=== PATIENT | female | born 1945 | race Asian ===

== ENCOUNTER 2018-12-15 07:47 | Outpatient (CLI) | payer OTHER ==
[2018-12-15 10:22] LABS: ALBUMIN 3.9 g/dL (3.2-5.5); ALBUMIN/GLOBULIN RATIO 1.1 (1.0-2.2); ALKALINE PHOSPHATASE 49 IU/L (42-121); ALT ALANINE AMINOTRANSFERASE 17 IU/L (10-60); AST ASPARTATE AMINOTRANSFERASE 23 IU/L (10-42); BILIRUBIN,TOTAL 0.7 mg/dL (0.2-1.0); BUN - BLOOD UREA NITROGEN 19 mg/dL (6-20); CALCIUM 8.6 mg/dL (8.5-10.3); CARBON DIOXIDE - CO2 30 mmol/L (21-32); CHLORIDE 103 mmol/L (101-111); CHOL/HDL RATIO 2.5 (<4.4); CHOLESTEROL 165 mg/dL; CREATININE 0.7 mg/dL (0.4-1.0); GFR - MDRD 82 (>89); GLUCOSE 94 mg/dL (70-100); HDL CHOLESTEROL 66 mg/dL; LDL CHOLESTEROL,CALCULATED 85 mg/dL; LDL/HDL RATIO 1.3 (<4.4); SODIUM 140 mmol/L (135-145); TOTAL PROTEIN 7.4 g/dL (6.7-8.2); VLDL CHOLESTEROL 14 mg/dL
== END 2018-12-15 07:48 | disposition home or self-care (01) ==
LOC: LAB.S 07:47
PROVIDERS: ATTEND Internal Medicine
DX: E78.5 Hyperlipidemia, unspecified (principal); E03.9 Hypothyroidism, unspecified
CPT/HCPCS: 36415; 80053; 80061; 83721; 84443

== ENCOUNTER 2022-03-15 07:48 | Day surgery (SDC) | payer MEDICARE, OTHER ==
[~2022-03-15 07:48] MED LIST: CYCLOPENTOLATE 1% OPHTH DROPS 2 ML ONE; KETOROLAC 0.45% OPHTH DROPS ONE; PHENYLEPHRINE 2.5% OPHTH 2 ML DROPS ONE; PROPARACAINE 0.5% OPHTH DROPS 15 ML ONE
[2022-03-15] MEDS ORDERED: LACTATED RINGERS 1,000 ML IV ONE (08:33)
--- NOTE | 2022-03-15 08:54 | ANESTHESIA ---
Pre-Anesthesia VS, & Labs - Diagnosis right eye senile combined cataract - Procedure right eye cataract extraction with IOL implant Vital Signs: Temp Pulse Resp BP Pulse Ox O2 Flow Rate 36.9 C 58 L 20 126/69 100 03/15/22 08:06 03/15/22 08:06 03/15/22 08:06 03/15/22 08:06 03/15/22 08:06 Height: 5 ft 1 in Weight (kg): 55.2 kg Body Mass Index: 23.0 BMI Classification: Normal - NPO >8 hours - Is Patient ?: No Home Medications and Allergies Home Medications: Ambulatory Orders Atorvastatin [Lipitor] 20 mg PO HS 03/14/22 Cholecalciferol [Vitamin D3] 2,000 unit PO DAILY 03/14/22 Levothyroxine [Synthroid] 75 mcg PO QDAC 03/14/22 lisinopriL [Lisinopril] 20 mg PO DAILY 03/14/22 Atorvastatin [Lipitor] 20 mg PO HS 03/14/22 Cholecalciferol [Vitamin D3] 2,000 unit PO DAILY 03/14/22 Levothyroxine [Synthroid] 75 mcg PO QDAC 03/14/22 lisinopriL [Lisinopril] 20 mg PO DAILY 03/14/22 Allergies/Adverse Reactions: Allergies Allergy/AdvReac Type Severity Reaction Status Date / Time No Known Drug Allergies Allergy Verified 03/14/22 11:38 Anes History & Medical History - Anesthetic History Anesthesia Complications: reports: No previous complications - Medical History Cardiovascular: reports: Hypertension, High cholesterol Pulmonary: reports: None Gastrointestinal: reports: None Urinary: reports: Other (s/p nephrectomy) Neuro: reports: None Musculoskeletal: reports: None Endocrine/Autoimmune: reports: HyPOthyroidism Blood Disorders: reports: None Skin: reports: None Smoking Status: Never smoker Psychosocial: reports: No issues indicated History of Cancer?: No - Surgical History General: reports: Appendectomy Urologic: reports: Nephrectomy Gynecologic: reports: section Exam General: Alert, Oriented x3, Cooperative, No acute distress Dental: WNL Mouth Openin Fingerbreadth Neck Mobility: Normal Mallampati classification: II Thyromental Distance: less than 4 cm Mental/Cognitive Status: Alert/Oriented X3, Normal for patient Plan Anesthesia Type: MAC Consent for Procedure(s) Verified and Reviewed: Yes Code Status: Attempt Resuscitation ASA classification: 2-Mild systemic disease Is this case an emergency?: No
[2022-03-15] MEDS ORDERED: MIDAZOLAM 2 MG/2 ML VIAL ONE (09:18)
[2022-03-15] MEDS ORDERED: BRIMONIDINE 0.2% OPHTH DROPS 5 ML OPTH ONE (09:32)
[2022-03-15] MEDS ORDERED: FLUMAZENIL 0.1 MG/1 ML 5 ML MDV IVP ONE (09:32)
[2022-03-15] MEDS ORDERED: EPINEPHrine 1 MG/ML AMP IR ONE (09:32)
[2022-03-15] MEDS ORDERED: TIMOLOL 0.5% OPHTH DROPS OPTH ONE (09:33)
[2022-03-15] MEDS ORDERED: TRIAMCIN/MOXIFLOX OPHTHALMIC 0.6 ML VIAL IO ONE ×2 (09:33→13:51)
[2022-03-15] MEDS ORDERED: PROPARACAINE 0.5% OPHTH DROPS 15 ML EACHEYE ONE (09:33)
[2022-03-15] MEDS ORDERED: BSS/LIDOCAINE/EPINEPHRINE 1 ML SYRINGE IO ONE (09:33)
[2022-03-15] MEDS ORDERED: VANCOMYCIN OPHTH (TOPICAL) 10 MG/ML SYRINGE TOP ONE (09:34)
[2022-03-15] MEDS ORDERED: LACTATED RINGERS 800 ML IV ONE (09:49)
--- NOTE | 2022-03-15 10:01 | OPERATIVE REPORT ---
Operative Report - Other Other Information/Narrative: Date of Surgery: 03/15/22 Preop Dx: Visually significant cataract right eye. Cataract surgery was performed in the left eye on 2002 in [facility]. Postop Dx: Same Procedure: Phacoemulsification with posterior chamber intraocular lens implant right eye Surgeon: Dr. Brian Rivas Anesthesia: Monitored anesthesia care Complications: None Operative Indications: This is a 76-year-old F with progressive vision loss in the right eye due to 2+ nuclear sclerotic and 4+ cortical cataract. Best corrected visual acuity was 20/30 with glare to hand motion vision in the right eye. Indications for surgery were: - Overall decrease in vision - Difficulty seeing words on a computer screen - Difficulty reading - Difficulty seeing words, closed captions, or game scores on TV - Difficulty driving in low light or at night - Difficulty driving at night because of headlights from other vehicles - Difficulty with glare or bright lights in any situation The patient was consented at length concerning the risks and benefits of cataract surgery after which the patient expressed a desire to proceed with surgery. Operative Procedure: The patient was taken into OR#3 and placed under monitored anesthesia care. A surgical time-out was conducted confirming correct patient, correct procedure, and correct surgical site. The patient was given topical anesthesia and then prepped and draped in the usual sterile fashion. The eye was entered at the 6 and 3 oclock positions. Intracameral Shugarcaine was injected into the anterior chamber followed by a dispersive viscoelastic. A continuous-tear curvilinear capsulorhexis was performed. The nucleus was hydrodissected and phacoemulsified. The cortex was evacuated using automated infusion and aspiration. A cohesive viscoelastic was injected into the capsular bag and a 18.5 diopter intraocular lens was inserted into the bag. Infusion and aspiration were used to evacuate the viscoelastic materials from the eye. The wounds were hydrated and the eye inflated to physiologic pressure using balanced salt solution. Approximately 0.25ml of a mixture of triamcinolone and moxifloxacin was injected trans-sclerally into the vitreous in the inferotemporal quadrant using a 30 gauge cannula. An additional 0.55ml of a mixture of triamcinolone and moxifloxacin was injected subconjunctivally in the superior quadrant for infection and inflammation prophylaxis. Wound integrity was checked with Weck-Katya sponges and found to be leaking so a 10-0 nylon suture was placed across the wound and the leaking stopped. The patient was taken from the operating room in good condition and given post-op instructions.
[2022-03-15 10:05] VITALS: BP 98/53
[2022-03-15] MEDS ORDERED: BRIMONIDINE 0.2% OPHTH DROPS 5 ML ONE (13:51)
[2022-03-15] MEDS ORDERED: EPINEPHrine 1 MG/ML AMP ONE (13:51)
[2022-03-15] MEDS ORDERED: BSS/LIDOCAINE/EPINEPHRINE 1 ML VIAL ONE (13:51)
[2022-03-15] MEDS ORDERED: VANCOMYCIN OPHTH (TOPICAL) 10 MG/ML SYRINGE ONE (13:51)
[2022-03-15] MEDS ORDERED: TIMOLOL 0.5% OPHTH DROPS ONE (13:51)
--- NOTE | 2022-03-15 13:58 | ANESTHESIA POST OP EVALUATION ---
Anesthesia Post Eval - Post Anesthesia Eval Vitals: Last Vital Signs Temp 36.5 C 03/15/22 10:04 Pulse 54 L 03/15/22 10:04 Resp 16 03/15/22 10:04 BP 98/53 L 03/15/22 10:04 Pulse Ox 100 03/15/22 10:04 O2 Flow Rate CV Function Including HR & BP: Stable Pain Control: Satisfactory Nausea & Vomiting: Negative Mental Status: Baseline Respiratory Status: Airway Patent Hydration Status: Satisfactory Anesthesia Complications: None
== END 2022-03-15 07:49 | disposition home or self-care (01) ==
LOC: SDS 07:48
PROVIDERS: ATTEND Ophthalmology
DX: H25.811 Combined forms of age-related cataract, right eye (principal); I10 Essential (primary) hypertension; Z98.42 Cataract extraction status, left eye
CPT/HCPCS: 66984; A9270; J3490; J7120

== ENCOUNTER 2022-06-21 09:41 | Outpatient (CLI) | payer MEDICARE ==
--- NOTE | 2022-06-21 12:44 | DEXA Report ---
PROCEDURE: Dexa Spine and/or Hip INDICATIONS: SCREENING FOR OSTEOPOROSIS TECHNIQUE: Dual energy x-ray absorptiometry (DXA) was performed on a [employer] System. Regions measur ed are the AP Spine, femoral neck, and if needed forearm. COMPARISON: None. FINDINGS: Lumbar Spine: Bone Mineral Density 0.919 g/cm/cm,T score -2.2, osteopenia Left Femoral Neck: Bone Mineral Density 0.734 g/cm/cm, T score -2.2, osteopenia Left Hip: Bone Mineral Density 0.807 g/cm/cm,T score -1.6, osteopenia (T score greater or equal to -1.0: NORMAL) (T score from -1.1 to -2.4: OSTEOPENIA) (T score less than or equal to -2.5 to: OSTEOPOROSIS) Impression: Osteopenia puts the patient has an elevated 10 year fracture risk. Patients with diagnosis of osteoporosis or osteopenia should have regular bone mineral density assess ment. For those eligible for Medicare, routine testing is allowed once every 2 years. Testing frequ ency can be increased for patients who have rapidly progressing disease or for those who are receivin g medical therapy to restore bone mass. Reviewed by: Brittny Cortes MD on 06/21/2022 12:43 PM PDT Approved by: Brittny Cortes MD on 06/21/2022 12:43 PM PDT Station ID: [id number]
== END 2022-06-21 09:42 | disposition home or self-care (01) ==
LOC: DI 09:41
PROVIDERS: ATTEND Student in an Organized Health Care Education/Training Program
DX: Z13.820 Encounter for screening for osteoporosis (principal); M85.89 Other specified disorders of bone density and structure, multiple sites; Z78.0 Asymptomatic menopausal state

== ENCOUNTER 2022-10-27 07:03 | Outpatient (CLI) | payer MEDICARE ==
--- NOTE | 2022-10-27 11:29 | Ultrasound Report ---
PROCEDURE: Abdomen Limited INDICATIONS: RUQ PAIN TECHNIQUE: Real-time focused scanning was performed of the abdomen, with image documentation. COMPARISONS: None. FINDINGS: Liver: Liver is normal in size and homogeneous in echotexture. Gallbladder: Gallbladder is normal in appearance without gallstones, gallbladder wall thickening, or pericholecystic fluid. Negative sonographic Fuller's sign. . Biliary ducts: Intrahepatic bile ducts are non-dilated. Extrahepatic bile duct caliber measures 5 m m. Normal is 6-7 mm or less in diameter, or 10 mm or less post-cholecystectomy. Pancreas: Visualized portions of the pancreas are sonographically normal. Right kidney: Status post right nephrectomy. Aorta: Visualized aorta is normal in caliber at less than 3 cm. IVC: Intrahepatic inferior vena cava is patent. Miscellaneous: No free abdominal fluid. IMPRESSION: Unremarkable right upper quadrant abdominal ultrasound. Status post right nephrectomy. Reviewed by: Nick Desouza MD on 10/27/2022 10:27 AM MARILYN Approved by: Nick Desouza MD on 10/27/2022 10:27 AM MARILYN Station ID: [id number]
== END 2022-10-27 07:04 | disposition home or self-care (01) ==
LOC: DI 07:03
PROVIDERS: ATTEND Internal Medicine
DX: R10.11 Right upper quadrant pain (principal); R10.811 Right upper quadrant abdominal tenderness; Z90.5 Acquired absence of kidney